=== PATIENT | female | born 1995 | race Caucasian/White ===

== ENCOUNTER 2017-03-05 23:33 | Emergency (ER) | payer BC ==
[~2017-03-05] VITALS: Ht 160 cm; Wt 91.8 kg
[2017-03-06 02:46] VITALS: BP 150/92
== END 2017-03-06 02:47 | disposition home or self-care (01) ==
LOC: EME 23:33
DX: S93.402A Sprain of unspecified ligament of left ankle, initial encounter (principal); S93.401A Sprain of unspecified ligament of right ankle, initial encounter; W10.9XXA Fall (on) (from) unspecified stairs and steps, initial encounter; Y92.008 Other place in unspecified non-institutional (private) residence as the place of occurrence of the external cause; Z88.0 Allergy status to penicillin
CPT/HCPCS: 73610; 99281; 99283